=== PATIENT | female | born 1985 | race American Indian/Alaskan Native ===

== ENCOUNTER 2020-11-02 22:58 | Emergency (ER) | payer OTHER ==
[2020-11-02] MEDS ORDERED: ONDANSETRON 4 MG/2 ML INJ IV ONE (23:44)
[2020-11-02] MEDS ORDERED: SODIUM CHLORIDE 0.9% 1000 ML 1,000 ML IV ONE (23:44)
--- NOTE | 2020-11-02 23:56 | Emergency Department Report ---
ED General Adult HPI - General Chief complaint: Dyspnea/Respdistress Stated complaint: TROUBLE BREATHING Time Seen by Provider: 11/02/20 23:37 Source: patient Mode of arrival: Ambulatory Limitations: No Limitations - History of Present Illness Initial comments: Patient is a 35-year-old female presents emergency room complaints of a dry cough that began yesterday. She has associated shortness of breath. She states that she began having vomiting tonight. She states that her mouth feels very dry. She denies any fever, chills, generalized body aches, chest pain, pleuritic chest pain, leg swelling, abdominal pain, diarrhea, urinary symptoms. She reports that someone at her work did test positive for COVID-19. She denies any recent travel. She has not received the COVID-19 vaccine. She has not received COVID-19 testing since becoming ill. She has a past medical history of hypertension and DVT in 2005 during . Allergy to lisinopril. Last menstrual cycle 10/14/2020. - Related Data Previous Rx's Medication Instructions Recorded Last Taken Type Amoxicillin/Potassium Clav 1 each PO BID 7 Days #14 tablet 11/03/20 Unknown Rx [Augmentin 875-125 Tablet] Azithromycin [Zithromax TAB] 500 mg PO QDAY 5 Days #6 tablet 11/03/20 Unknown Rx Promethazine [Phenergan] 25 mg PO Q8HR PRN #10 tab 11/03/20 Unknown Rx guaiFENesin/DEXTROMETHORPHAN 1 each PO Q6HR PRN #14 capsule 11/03/20 Unknown Rx [Coricidin Hbp Chest Keenan-Cough] Allergies Allergy/AdvReac Type Severity Reaction Status Date / Time lisinopril Allergy Unknown Verified 11/02/20 23:03 ED Review of Systems ROS: Stated complaint: TROUBLE BREATHING Other details as noted in HPI Comment: All other systems reviewed and negative ED Past Medical Hx - Past Medical History Hx Hypertension: Yes Additional medical history: DVT in groin - Surgical History Past Surgical History?: No - Social History Smoking Status: Never Smoker Substance Use Type: Alcohol - Medications Home Medications: Home Medications Medication Instructions Recorded Confirmed Last Taken Type Amoxicillin/Potassium Clav 1 each PO BID 7 Days #14 tablet 11/03/20 Unknown Rx [Augmentin 875-125 Tablet] Azithromycin [Zithromax TAB] 500 mg PO QDAY 5 Days #6 tablet 11/03/20 Unknown Rx Promethazine [Phenergan] 25 mg PO Q8HR PRN #10 tab 11/03/20 Unknown Rx guaiFENesin/DEXTROMETHORPHAN 1 each PO Q6HR PRN #14 capsule 11/03/20 Unknown Rx [Coricidin Hbp Chest Keenan-Cough] ED Physical Exam - General Limitations: No Limitations General appearance: alert, in no apparent distress - Head Head exam: Present: atraumatic, normocephalic - Eye Eye exam: Present: normal appearance - ENT ENT exam: Present: mucous membranes dry - Respiratory Respiratory exam: Present: normal lung sounds bilaterally. Absent: respiratory distress, wheezes, rales, rhonchi, stridor, chest wall tenderness, accessory muscle use, decreased breath sounds, prolonged expiratory - Cardiovascular Cardiovascular Exam: Present: regular rate, normal rhythm, normal heart sounds. Absent: systolic murmur, diastolic murmur, rubs, gallop - Neurological Exam Neurological exam: Present: alert, oriented X3 - Psychiatric Psychiatric exam: Present: normal affect, normal mood - Skin Skin exam: Present: warm, dry ED Course Vital Signs 11/02/20 11/03/20 23:06 02:08 Temperature 99.2 F 98.2 F Pulse Rate 119 H 98 H Respiratory 18 16 Rate Blood Pressure 154/96 Blood Pressure 157/102 [Left] O2 Sat by Pulse 100 100 Oximetry ED Medical Decision Making - Lab Data Result diagrams: 11/02/20 23:54 11/02/20 23:54 Lab Results 11/02/20 11/02/20 11/03/20 Range/Units 23:54 23:54 Unknown WBC 8.0 (4.5-11.0) K/mm3 RBC 4.62 (3.65-5.03) M/mm3 Hgb 12.4 (10.1-14.3) gm/dl Hct 36.3 (30.3-42.9) % MCV 79 (79-97) fl MCH 27 L (28-32) pg MCHC 34 (30-34) % RDW 15.3 H (13.2-15.2) % Plt Count 532 H (140-440) K/mm3 [place] % (Auto) 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 Sodium 134 L (137-145) mmol/L Potassium 3.4 L (3.6-5.0) mmol/L Chloride 93.9 L (98-107) mmol/L Carbon Dioxide 28 (22-30) mmol/L Anion Gap 16 mmol/L BUN 11 (7-17) mg/dL Creatinine 1.2 (0.6-1.2) mg/dL Estimated GFR 51 ml/min BUN/Creatinine Ratio 9 % Glucose 107 H (65-100) mg/dL Calcium 8.9 (8.4-10.2) mg/dL Total Bilirubin 0.20 (0.1-1.2) mg/dL AST 14 (5-40) units/L ALT 10 (7-56) units/L Alkaline Phosphatase 84 (35-129) units/L Total Protein 7.9 (6.3-8.2) g/dL Albumin 4.2 (3.9-5) g/dL Albumin/Globulin Ratio 1.1 % Urine Color Straw (Yellow) Urine Turbidity Clear (Clear) Urine pH 7.0 (5.0-7.0) Ur Specific [place] 1.009 (1.003-1.030) Urine Protein <15 mg/dl (Negative) mg/dL Urine Glucose (UA) Neg (Negative) mg/dL Urine Ketones Neg (Negative) mg/dL Urine Blood Mod (Negative) Urine Nitrite Neg (Negative) Urine Bilirubin Neg (Negative) Urine Urobilinogen < 2.0 (<2.0) mg/dL Ur Leukocyte Esterase Tr (Negative) Urine WBC (Auto) 1.0 (0.0-6.0) /HPF Urine RBC (Auto) 2.0 (0.0-6.0) /HPF U Epithel Cells (Auto) 1.0 (0-13.0) /HPF Urine Bacteria (Auto) 1+ (Negative) /HPF Urine HCG, Qual Negative (Negative) Vital Signs 11/02/20 11/03/20 23:06 02:08 Temperature 99.2 F 98.2 F Pulse Rate 119 H 98 H Respiratory 18 16 Rate Blood Pressure 154/96 Blood Pressure 157/102 [Left] O2 Sat by Pulse 100 100 Oximetry - Radiology Data Radiology results: report reviewed Ordering Physician: AMY DELANEY Date of Service: 11/02/20 Procedure(s): XR chest routine 2V Accession Number(s): [id number] cc: AMY DELANEY Fluoro Time In Minutes: CHEST 2 VIEWS INDICATION / CLINICAL INFORMATION: cough, sob. COMPARISON: None available. FINDINGS: SUPPORT DEVICES: None. HEART / MEDIASTINUM: No significant abnormality. LUNGS / PLEURA: There is rounded pulmonary opacity projecting within the left upper lobe, most likely representing area of pneumonia. The remainder of both lungs are clear. No pleural effusion. No pneumothorax. ADDITIONAL FINDINGS: No significant additional findings. IMPRESSION: 1. Rounded area of pulmonary opacity, left upper lobe. This is most likely area of focal pneumonia. However, short-term follow-up radiographs should be obtained to ensure resolution following medical treatment. 2. No other significant finding. Signer Name: Tracie Kerr MD Signed: 11/03/2020 1:03 AM Workstation Name: [id number] Transcribed By: Dictated By: Tracie Kerr MD Electronically Authenticated By: Tracie Kerr MD Signed Date/Time: 11/03/20102 DD/ 0 TD/TT: - Medical Decision Making Patient is a 35-year-old female presents emergency room complaints of a dry cough that began yesterday. She has associated shortness of breath. She states that she began having vomiting tonight. She states that her mouth feels very dry. She denies any fever, chills, generalized body aches, chest pain, pleuritic chest pain, leg swelling, abdominal pain, diarrhea, urinary symptoms. She reports that someone at her work did test positive for COVID-19. She denies any recent travel. She has not received the COVID-19 vaccine. She has not received COVID-19 testing since becoming ill. She has a past medical history of hypertension and DVT in 2006 during . Allergy to lisinopril. Last menstrual cycle 10/14/2020. Initial vitals with tachycardia which improved upon repeat. No hypoxia or fever. Breath sounds are clear bilaterally, no wheezing, no rales, no rhonchi. Labs with mild dehydration and mild hypokalemia, given 1 L of IV fluids and K-Dur. Patient given IV Zofran and was able to tolerate p.o. intake, had no further episodes of vomiting. UA is within normal limits. Chest x-ray 1. Rounded area of pulmonary opacity, left upper lobe. This is most likely area of focal pneumonia.However, short-term follow-up radiographs should be obtained to ensure resolution following medical treatment. 2. No other significant finding. Patient given prescription for medications. Advised patient Please take medication as prescribed. Increase your fluid intake. Follow-up with a primary care doctor. You need to have a repeat chest x-ray for clearance of pneumonia. Return to emergency room for any new or worsening symptoms. Recommend for you to get outpatient COVID-19 testing and quarantine as necessary. Critical care attestation.: If time is entered above; I have spent that time in minutes in the direct care of this critically ill patient, excluding procedure time. ED Disposition Clinical Impression: Hypokalemia Pneumonia Qualifiers: Pneumonia type: due to unspecified organism Laterality: left Lung location: upper lobe of lung Qualified Code(s): J18.9 - Pneumonia, unspecified organism Disposition: TO HOME OR SELFCARE Is pt being admited?: No Does the pt Need Aspirin: No Condition: Stable Instructions: Hypokalemia, Community-Acquired Pneumonia, Adult, [id number], Bacterial Pneumonia (ED) Additional Instructions: Please take medication as prescribed. Increase your fluid intake. Follow-up with a primary care doctor. You need to have a repeat chest x-ray for clearance of pneumonia. Return to emergency room for any new or worsening symptoms. Recommend for you to get outpatient COVID-19 testing and quarantine as necessary. Prescriptions: Amoxicillin/Potassium Clav [Augmentin 875-125 Tablet] 1 each PO BID 7 Days #14 tablet guaiFENesin/DEXTROMETHORPHAN [Coricidin Hbp Chest Keenan-Cough] 1 each PO Q6HR PRN #14 capsule PRN Reason: cough Promethazine [Phenergan] 25 mg PO Q8HR PRN #10 tab PRN Reason: Nausea/vomiting Azithromycin [Zithromax TAB] 500 mg PO QDAY 5 Days #6 tablet Referrals: CORNEL GAFFNEY MD [Staff Physician] - 2-3 Days [facility] [Provider Group] - 2-3 Days Time of Disposition: 01:35 Print Language: [place]
[2020-11-03 00:09] LABS: Hematocrit 36.3 % (30.3-42.9); Hemoglobin 12.4 gm/dl (10.1-14.3); Mean Corpuscular HGB Conc 34 % (30-34); Mean Corpuscular Volume 79 fl (79-97); Platelet Count 532 K/mm3 (140-440); Red Blood Count 4.62 M/mm3 (3.65-5.03); Red Cell Distribution Width 15.3 % (13.2-15.2)
[2020-11-03 00:14] LABS: Bacteria,Urine 1+ /HPF (Negative); Bilirubin,Urine NEG (Negative); Blood,Urine MOD (Negative); Color,Urine Straw (Yellow); Protein,Urine <15 mg/dL mg/dL (Negative); Urobilinogen,Urine < 2.0 mg/dL (<2.0)
[2020-11-03 00:16] LABS: HCG Qualitative,Urine Negative (Negative)
[2020-11-03 00:29] LABS: Albumin 4.2 g/dL (3.9-5); Calcium 8.9 mg/dL (8.4-10.2)
[2020-11-03] MEDS ORDERED: POTASSIUM CHLORIDE ER 20 MEQ TAB PO ONE (00:41)
--- NOTE | 2020-11-03 01:07 | XRay Report ---
CHEST 2 VIEWS INDICATION / CLINICAL INFORMATION: cough, sob. COMPARISON: None available. FINDINGS: SUPPORT DEVICES: None. HEART / MEDIASTINUM: No significant abnormality. LUNGS / PLEURA: There is rounded pulmonary opacity projecting within the left upper lobe, most likely representing area of pneumonia. The remainder of both lungs are clear. No pleural effusion. No pneum othorax. ADDITIONAL FINDINGS: No significant additional findings. IMPRESSION: 1. Rounded area of pulmonary opacity, left upper lobe. This is most likely area of focal pneumonia. H owever, short-term follow-up radiographs should be obtained to ensure resolution following medical tr eatment. 2. No other significant finding. Signer Name: Tracie Krer MD Signed: 11/03/2020 1:03 AM Workstation Name: [id number]
[2020-11-03 02:09] VITALS: BP 157/102
[2020-11-03 03:34] LABS: Total Cells Counted 100
[2020-11-03 03:35] LABS: Anisocytosis 1+; Platelet Estimate Consistent w Auto
== END 2020-11-03 02:10 | disposition home or self-care (01) ==
LOC: ED 22:58
DX: E87.6 Hypokalemia (principal); J18.9 Pneumonia, unspecified organism; R11.10 Vomiting, unspecified; I10 Essential (primary) hypertension; Z72.89 Other problems related to lifestyle; Z88.8 Allergy status to other drugs, medicaments and biological substances; Z79.899 Other long term (current) drug therapy
CPT/HCPCS: 36415; 71046; 80053; 81001; 81025; 85007; 85025; 96361; 96374; 99284; J2405; J7030